=== PATIENT | female | born 1990 | race Caucasian/White ===

== ENCOUNTER → 2017-07-08 | Outpatient (CLI) | payer BC, OTHER | LOC: M WUC 16:30 | DX: M25.532 Pain in left wrist (principal) | CPT/HCPCS: 73110 ==

== ENCOUNTER → 2018-02-27 | Outpatient (CLI) | payer BC, OTHER ==
[2018-02-27 14:12] LABS: BASO % 0.5 % (0.0-1.0); EOS % 0.5 % (0.0-3.0); HEMATOCRIT 39.2 % (36.0-47.0); HEMOGLOBIN 13.4 g/dl (12.0-15.5); IMMATURE GRANULOCYTE % 0.3 % (0-3.0); LYMPH # 1.4 10^3/uL (1.5-6.5); LYMPH % 21.9 % (24.0-44.0); MEAN CORPUSCULAR HEMOGLOBIN 31.6 pg (27.0-33.0); MEAN CORPUSCULAR HGB CONC 34.2 g/dl (32.0-36.5); MEAN CORPUSCULAR VOLUME 92.5 fl (80.0-96.0); MONO # 0.6 10^3/uL (0.0-0.8); MONO % 9.8 % (0.0-5.0); NEUTROPHILS # 4.4 10^3/uL (1.8-7.7); PLATELET COUNT, AUTOMATED 204 10^3/uL (150-450); RED BLOOD COUNT 4.24 10^6/uL (4.00-5.40); RED CELL DISTRIBUTION WIDTH 12.8 % (11.5-14.5); WHITE BLOOD COUNT 6.5 10^3/uL (4.0-10.0)
[2018-02-27 14:14] LABS: APPEARANCE, URINE CLOUDY (CLEAR); BACTERIA, URINE AUTO 1+ (NEGATIVE); BILIRUBIN, URINE AUTO NEGATIVE (NEGATIVE); BLOOD, URINE BLOOD NEGATIVE (NEGATIVE); COLOR, URINE AMBER (YELLOW); GLUCOSE, URINE (UA) AUTO NEGATIVE (NEGATIVE); KETONE, URINE AUTO NEGATIVE (NEGATIVE); LEUKOCYTE ESTERASE, URINE AUTO 3+ (NEGATIVE); MUCUS, URINE SMALL (NEGATIVE); NITRITE, URINE AUTO NEGATIVE (NEGATIVE); PROTEIN, URINE AUTO NEGATIVE (NEGATIVE); RBC, URINE AUTO 2 /HPF (0-3); SPECIFIC GRAVITY URINE AUTO 1.024 (1.002-1.035); SQUAMOUS EPITHELIAL CELL UR AU 3 /HPF (0-6); UROBILINOGEN, URINE AUTO 0.2 mg/dL (0.0-2.0); WBC, URINE AUTO 8 /HPF (0-3)
[2018-02-27 14:23] LABS: ALT/SGPT 16 U/L (12-78); AST/SGOT 19 U/L (7-37); BILIRUBIN,TOTAL 0.5 MG/DL (0.2-1.0); CREATININE FOR GFR 0.62 MG/DL (0.55-1.30); GLOMERULAR FILTRATION RATE > 60.0 (>60); LDH LACTATE DEHYDROGENASE 154 U/L (84-246); URIC ACID 3.5 MG/DL (2.6-6.0)
[2018-02-27 14:39] LABS: RUBELLA IgG QUALITATIVE IMMUNE (IMMUNE)
[2018-02-27 16:09] LABS: CHLAMYDIA DNA AMPLIFICATION NEGATIVE (NEGATIVE); GC DNA AMPLIFICATION NEGATIVE (NEGATIVE)
[2018-02-28 10:46] LABS: HBsAg Prenatal NEGATIVE (NEGATIVE)
[2018-02-28 11:14] LABS: HEPATITIS C VIRUS ABY INDEX 0.1 INDEX (<0.8)
[2018-02-28 11:14] LABS: HIV 1&2 SCREEN CENTAUR NEGATIVE (NEGATIVE)
== END ==
LOC: M SMT 10:46
DX: O30.001 Twin pregnancy, unspecified number of placenta and unspecified number of amniotic sacs, first trimester (principal); Z3A.08 8 weeks gestation of pregnancy
CPT/HCPCS: 84460

== ENCOUNTER → 2018-03-04 | Outpatient (REF) | payer BC ==
[2018-03-04 15:42] LABS: CREATININE, SERUM 0.6 MG/DL (0.6-1.0)
[2018-03-04 15:45] LABS: TOTAL VOLUME, URINE 700 ML
[2018-03-04 16:11] LABS: CREATININE CLEARANCE, URINE 119.9 ML/MIN (75-115)
== END ==
LOC: M LAB REF 15:18
DX: O30.001 Twin pregnancy, unspecified number of placenta and unspecified number of amniotic sacs, first trimester (principal); Z3A.08 8 weeks gestation of pregnancy
CPT/HCPCS: 82575

== ENCOUNTER 2018-03-09 18:58 | Emergency (ER) | payer BC, OTHER ==
[2018-03-09] MEDS: ACETAMINOPHEN 325 MG TAB PO (19:49)
== END 2018-03-09 21:14 | disposition home or self-care (01) ==
LOC: M ED 18:58
DX: O9A.211 Injury, poisoning and certain other consequences of external causes complicating pregnancy, first trimester (principal); S09.90XA Unspecified injury of head, initial encounter; V03.90XA Pedestrian on foot injured in collision with car, pick-up truck or van, unspecified whether traffic or nontraffic accident, initial encounter; Y92.481 Parking lot as the place of occurrence of the external cause; Z88.8 Allergy status to other drugs, medicaments and biological substances; Z91.040 Latex allergy status; Z3A.10 10 weeks gestation of pregnancy; O30.041 Twin pregnancy, dichorionic/diamniotic, first trimester
CPT/HCPCS: 76801

== ENCOUNTER → 2018-03-13 | Outpatient (CLI) | payer BC, OTHER ==
[~2018-03-13] MED LIST: NITR100C2 PO; PREN1CHW4 PO
== END ==
LOC: M SMT 09:26
PROVIDERS: ATTEND Advanced Practice Midwife
DX: O30.001 Twin pregnancy, unspecified number of placenta and unspecified number of amniotic sacs, first trimester (principal)

== ENCOUNTER → 2018-05-07 | Outpatient (CLI) | payer BC, OTHER ==
--- NOTE | 2018-05-07 13:51 | REP ---
TWIN OB ULTRASOUND: Real-time sonographic evaluation of the gravid uterus is performed. There is a living intrauterine diamniotic diachronic twin gestation. Estimated gestational age is 18 weeks 6 days. EDC 10/02/2018. Today's measurements indicate appropriate concordant growth. Placenta is posterior and grade 0 with no previa or abruption. Cervix is closed and measures 5.4 cm in length. FETUS A: BPD 46 mm 19 weeks 5 days, 73rd percentile HC 164 mm 19 weeks 1 days, 56th percentile AC 134 mm 18 weeks 6 days, 49th percentile Femur length 28 mm 18 weeks 4 days, 43rd percentile HC/AC ratio 1.22. Estimated weight 259 grams 44th percentile. heart rate 133 beats per minute. SEEN/GROSSLY UNREMARKABLE Lateral ventricles Yes Posterior fossa Yes Upper lip Yes Four-chamber heart Yes LVOT Yes RVOT Yes Stomach Yes Cord insertion Yes Three vessel cord Yes Kidneys Yes Bladder Yes Spine No position: Vertex on the maternal right side. Amniotic fluid: Appears within normal limits with deepest pocket of fluid 3.3 cm. FETUS B: BPD 42 mm 18 weeks 6 days, 40th percentile HC 153 mm 18 weeks 2 days, 32nd percentile AC 130 mm 18 weeks 3 days, 41st percentile Femur length 27 mm 18 weeks 0 days, 29th percentile HC/AC ratio 1.18. Estimated weight 234 grams 26th percentile. heart rate 147 beats per minute. SEEN/GROSSLY UNREMARKABLE Lateral ventricles Yes Posterior fossa Yes Upper lip Yes Four-chamber heart Yes LVOT Yes RVOT Yes Stomach Yes Cord insertion Yes Three vessel cord Yes Kidneys Yes Bladder Yes Spine Yes position: Breech on the maternal left side. Amniotic fluid: Within normal limits with deepest pocket of fluid 3.5 cm. Electronically Signed by Rhett Lozano MD 05/07/2018 08:10 P
== END ==
LOC: M RAD 08:42
PROVIDERS: ATTEND Advanced Practice Midwife
DX: O30.042 Twin pregnancy, dichorionic/diamniotic, second trimester (principal); Z3A.18 18 weeks gestation of pregnancy; O32.1XX2 Maternal care for breech presentation, fetus 2

== ENCOUNTER → 2018-05-30 | Outpatient (CLI) | payer BC, OTHER ==
--- NOTE | 2018-05-30 12:43 | REP ---
TWIN OB ULTRASOUND: Real-time sonographic evaluation of gravid uterus performed. There is a living diamniotic, dichorionic twin gestation. Placenta posterior and grade 0 with no previa or abruption. Cervix is closed and measures 4.2 cm in length. Estimated gestational age 22 weeks 1 day. EDC 10/02/2018. There is appropriate concordant growth. FETUS A: BPD 54 mm = 22 weeks 4 days, 62nd percentile HC 200 mm = 22 weeks 1 day, 52nd percentile AC 169 mm = 21 weeks 6 days, 45th percentile FL 37 mm = 21 weeks 4 days, 37th percentile HC/AC ratio 1.19. Estimated weight 453 grams, 37th percentile. SEEN/GROSSLY UNREMARKABLE Lateral ventricles Yes Posterior fossa Yes Upper lip No Four-chamber heart No LVOT No RVOT Yes Stomach Yes Cord insertion No Three vessel cord Yes Kidneys Yes Bladder Yes Spine Yes heart rate: 150 beats per minute. position: Vertex in the midline. Amniotic fluid: Within normal limits with deepest pocket of fluid 3.8 cm. FETUS B: BPD 53 mm = 22 weeks 0 days, 46th percentile HC 286 mm = 21 weeks 0 day, 16th percentile AC 165 mm = 21 weeks 4 days, 38th percentile FL 35 mm = 21 weeks 1 days, 27th percentile HC/AC ratio 1.13. Estimated weight 419 grams, 24th percentile. SEEN/GROSSLY UNREMARKABLE Lateral ventricles Yes Posterior fossa Yes Upper lip No Four-chamber heart No LVOT No RVOT Yes Stomach Yes Cord insertion Yes Three vessel cord Yes Kidneys Yes Bladder Yes Spine No heart rate: 139 beats per minute. position: Transverse with head toward the maternal left side. Amniotic fluid: Within normal limits with deepest pocket of fluid 2.8 cm. IMPRESSION: Appropriate concordant growth as discussed in detail above for this diamniotic, dichorionic living intrauterine twin gestation. Electronically Signed by Rhett Lozano MD 06/02/2018 11:14 A
== END ==
LOC: M RAD 10:47
PROVIDERS: ATTEND Advanced Practice Midwife
DX: O30.042 Twin pregnancy, dichorionic/diamniotic, second trimester (principal); Z3A.22 22 weeks gestation of pregnancy

== ENCOUNTER → 2019-03-22 | Outpatient (CLI) | payer BC, OTHER ==
[~2019-03-22] MED LIST changes: +MAPA500T2 PO; +PRENTAB9 PO
--- NOTE | 2019-03-22 18:13 | REP ---
Clinical: Left-sided sciatica and back pain. Technique: AP, lateral, bilateral oblique and coned-down views of the lumbosacral spine. Findings: Alignment is maintained. No acute fracture / compression injury or subluxation. Degenerative disc disease at L5-S1 includes endplate sclerosis with disc space narrowing and mild hypertrophic facet changes. Remainder examination is normal for age. Impression: Focal degenerative changes at L5-S1. Electronically Signed by Mohamud Casas MD 03/22/2019 06:05 P
== END ==
LOC: M LRY 17:19
PROVIDERS: ATTEND Nurse Practitioner Family
DX: M54.42 Lumbago with sciatica, left side (principal)

== ENCOUNTER → 2022-08-17 | Outpatient (CLI) | payer BC, OTHER ==
[2022-08-17 17:35] LABS: HEMATOCRIT 37.9 % (36.0-47.0); HEMOGLOBIN 12.1 g/dl (12.0-15.5); MEAN CORPUSCULAR HEMOGLOBIN 28.4 pg (27.0-33.0); MEAN CORPUSCULAR HGB CONC 31.9 g/dl (32.0-36.5); PLATELET COUNT, AUTOMATED 236 10^3/uL (150-450); RED BLOOD COUNT 4.26 10^6/uL (4.00-5.40); WHITE BLOOD COUNT 7.9 10^3/uL (4.0-10.0)
[2022-08-17 17:36] LABS: LDH LACTATE DEHYDROGENASE 138 U/L (120-246)
[2022-08-17 17:37] LABS: ALT/SGPT < 9 U/L (7.0-40); AST/SGOT 10 U/L (<34); BILIRUBIN,TOTAL 0.6 MG/DL (0.3-1.2); CREATININE FOR GFR 0.57 MG/DL (0.55-1.30); GLOMERULAR FILTRATION RATE > 60.0 (>60)
[2022-08-17 17:56] LABS: CREATININE,RANDOM URINE 100.2 MG/DL
[2022-08-17 18:01] LABS: TOTAL PROTEIN,RANDOM URINE < 6.0 MG/DL (0.0-14.0)
[2022-08-17 18:06] LABS: HIV 1&2 SCREEN NEGATIVE (NEGATIVE)
[2022-08-17 20:40] LABS: GC DNA AMPLIFICATION NEGATIVE (NEGATIVE)
== END ==
LOC: M PLALAB 15:16
PROVIDERS: ATTEND Advanced Practice Midwife
DX: Z34.01 Encounter for supervision of normal first pregnancy, first trimester (principal); Z34.82 Encounter for supervision of other normal pregnancy, second trimester

== ENCOUNTER → 2022-10-02 | Outpatient (CLI) | payer BC, OTHER | LOC: M WHC 09:27 | PROVIDERS: ATTEND Advanced Practice Midwife | DX: Z34.92 Encounter for supervision of normal pregnancy, unspecified, second trimester (principal) ==

== ENCOUNTER → 2022-11-05 | Outpatient (CLI) | payer BC, OTHER | LOC: M WHC 08:41 | PROVIDERS: ATTEND Obstetrics & Gynecology | DX: Z36.2 Encounter for other antenatal screening follow-up (principal); Z3A.24 24 weeks gestation of pregnancy ==

== ENCOUNTER → 2022-11-23 | Outpatient (CLI) | payer BC, OTHER ==
[2022-11-23 14:31] LABS: HEMATOCRIT 36.8 % (36.0-47.0); HEMOGLOBIN 11.8 g/dl (12.0-15.5); MEAN CORPUSCULAR HGB CONC 32.1 g/dl (32.0-36.5); MEAN CORPUSCULAR VOLUME 96.6 fl (80.0-96.0); PLATELET COUNT, AUTOMATED 178 10^3/uL (150-450); RED BLOOD COUNT 3.81 10^6/uL (4.00-5.40); WHITE BLOOD COUNT 8.7 10^3/uL (4.0-10.0)
[2022-11-23 15:52] LABS: GC DNA AMPLIFICATION NEGATIVE (NEGATIVE)
== END ==
LOC: M PLALAB 10:50
PROVIDERS: ATTEND Obstetrics & Gynecology
DX: Z34.92 Encounter for supervision of normal pregnancy, unspecified, second trimester (principal)

== ENCOUNTER → 2023-01-28 | Outpatient (REF) | payer BC, OTHER | LOC: M SFHCWAGY 16:44 | PROVIDERS: ATTEND Specialist | DX: Z34.83 Encounter for supervision of other normal pregnancy, third trimester (principal) ==

== ENCOUNTER → 2025-02-03 | Outpatient (CLI) | payer BC ==
[~2025-02-03] MED LIST changes: +FERR325T3 PO; +GNP250TA9 PO; +OMEP-173 PO; +OXYC1TAB23 PO
== END ==
LOC: M WHC 11:02
PROVIDERS: ATTEND Student in an Organized Health Care Education/Training Program
DX: N92.1 Excessive and frequent menstruation with irregular cycle (principal); N85.8 Other specified noninflammatory disorders of uterus